=== PATIENT | female | born 1950 | race Caucasian/White ===

== ENCOUNTER 2018-07-06 09:13 | Day surgery (SDC) | payer OTHER, MEDICARE ==
[2018-07-05 08:48] VITALS: BMI 40.6
--- NOTE | 2018-07-06 12:04 | HP ---
History & Physical Update - Physical Physical: No Change - Assessment Assessment: No Change
[2018-07-06] MEDS ORDERED: MIDAZOLAM HCL 2 MG/2 ML SINGLE DOSE VIAL ONE (12:28)
[2018-07-06] MEDS ORDERED: PROPOFOL 20 ML ONE (12:33)
[2018-07-06] MEDS ORDERED: IBUPROFEN 800 MG/8 ML IJ IVPB PRN (13:30)
[2018-07-06] MEDS ORDERED: oxyCODONE HCL 5 MG TABLET PO PRN ×2 (13:30→13:37)
[2018-07-06] MEDS ORDERED: ELECTROLYTE-148 SOLN 1,000 ML IV SCH (13:30)
[2018-07-06] MEDS ORDERED: IBUPROFEN 600 MG TABLET (FP) PO PRN (13:30)
[2018-07-06] MEDS ORDERED: ONDANSETRON 4 MG/2 ML VIAL IVPUSH PRN ×2 (13:30→13:37)
[2018-07-06] MEDS ORDERED: PROMETHAZINE HCL 25 MG/1 ML VIAL IVPB PRN (13:37)
[2018-07-06] MEDS ORDERED: LACTATED RINGERS SOLUTION 1,000 ML IV SCH (13:45)
[2018-07-06 14:31] VITALS: TEMP 98
[2018-07-06 15:54] VITALS: BP 134/69; PULSE 66
--- NOTE | 2018-07-07 08:40 | OP ---
DATE OF OPERATION: 07/06/2018 PREOPERATIVE DIAGNOSIS: Postmenopausal bleeding. POSTOPERATIVE DIAGNOSES: Postmenopausal bleeding, endometrial polyp and submucous myoma. SURGEON: Bronson Alvarez MD ANESTHESIA: General. ANESTHESIOLOGIST: Leanne Munoz MD ESTIMATED BLOOD LOSS: 100 mL. OPERATION: The patient was taken to the operating room. Under adequate general anesthesia in the dorsal lithotomy position examination under anesthesia revealed external genitalia to be normal. Vagina was atrophic. Cervix was atrophic and high above in the vagina. Uterus was slightly prominent. Adnexa: No masses were palpable. Because of the narrow introitus and vaginal atrophy and the cervix being high in the vagina it was difficult first to dilate the cervix, but the cervix was finally dilated with Hegar dilator and sounded to 7 cm. Then Symphion resectoscope was introduced and visualization of endocervical canal appeared to be normal. There was a 3-cm endometrial polyp at the fundal area of the uterus which was occupying the cavity. Beyond the endometrial polyp also was a 2-cm submucous myoma at the fundal area of the uterus. At this time first the polyp was resected and then the fibroid visualization was evident. Then the fibroid also was resected with the Symphion resectoscope and removed and suctioned. Both cornual regions of the uterus were visualized and no other abnormality was found. There was a small area of bleeding at the fundal where the fibroid was resected. It was cauterized and hemostasis was established. Uterine cavity irrigated and no other abnormality was seen. Patient tolerated procedure well, left the OR in good condition. Lissett [id number]
--- NOTE | 2018-07-07 18:27 | PATH ---
Surgical Pathology Report Patient Name: AMITA LUGO [facility]. Rec. #: [id number] /Age/Gender: 1950 (Age: 68) / F Account: [id number] Location: [facility] SURGICAL Taken: 07/06/2018 Received: 07/06/2018 Reported: 07/07/2018 Physicians: Bronson Alvarez M.D. Specimen(s) Received A: ENDOMETRIAL CURETTINGS B: ENDOMETRIUM POLYP Clinical History Postmenopausal bleeding Final Diagnosis A. ENDOMETRIAL CURETTINGS: PREDOMINANTLY BLOOD. FEW FRAGMENTS OF SUPERFICIAL ENDOMETRIAL GLANDS AND STROMA. B. ENDOMETRIAL POLYP, EXCISION: ENDOMETRIAL POLYPS. Electronically Signed Jonathan Reyes M.D. Gross Description A. Received in formalin labeled "endometrial curettings," is a 0.5 x 0.3 x 0.1 cm aggregate of li-red soft tissue fragments. The formalin is filtered and the specimen is entirely submitted in one cassette. B. Received in formalin labeled "endometrial polyp," is a 1.5 x 1.1 x 0.2 cm aggregate of li soft tissue fragments. The formalin is filtered and the specimen is entirely submitted in one cassette. DL/07/06/2018 saudi07/06/2018
== END 2018-07-06 15:45 | disposition home or self-care (01) ==
LOC: JASU-SURG 09:13
PROVIDERS: ATTEND Obstetrics & Gynecology
PROC: 0UDB7ZX Extraction of Endometrium, Via Natural or Artificial Opening, Diagnostic (ICD-10-PCS; 2018-07-06)
PROC: 0UJD8ZZ Inspection of Uterus and Cervix, Via Natural or Artificial Opening Endoscopic (ICD-10-PCS; 2018-07-06)
PROC: 0UB98ZZ Excision of Uterus, Via Natural or Artificial Opening Endoscopic (ICD-10-PCS; principal; 2018-07-06 11:15)
PROC: 0UB97ZX Excision of Uterus, Via Natural or Artificial Opening, Diagnostic (ICD-10-PCS; 2018-07-06 11:15)
DX: N95.0 Postmenopausal bleeding (principal); D25.0 Submucous leiomyoma of uterus; N84.0 Polyp of corpus uteri
CPT/HCPCS: 82962; 88305-TC; 94760